=== PATIENT | female | born 2000 | race Two or more races ===

== ENCOUNTER 2022-03-24 06:30 | Emergency (ER) | payer OTHER ==
[~2022-03-24] VITALS: Ht 165.1 cm; Wt 53.6 kg
[2022-03-24] MEDS ORDERED: PRED-554 PO (07:12)
[2022-03-24] MEDS ORDERED: DiphenhydrAMINE HCL 50 MG/ML VIAL IM ONE (07:15)
[2022-03-24] MEDS ORDERED: PredniSONE 20 MG TABLET PO ONE (07:15)
[2022-03-24 08:07] VITALS: BP 110/80
== END 2022-03-24 08:21 | disposition home or self-care (01) ==
LOC: EMS 06:31
DX: L50.9 Urticaria, unspecified (principal)
CPT/HCPCS: 99283; 96372; J1200; J7512

== ENCOUNTER 2022-06-16 21:02 | Emergency (ER) | payer OTHER ==
[~2022-06-16] VITALS: Ht 157.5 cm; Wt 45.0 kg
[~2022-06-16 21:02] MED LIST: PRED-554 PO
[2022-06-16 21:26] LABS: COVID AG,FIA SOURCE NASAL SWAB
[2022-06-16] MEDS ORDERED: ACETAMINOPHEN 500 MG TABLET PO ONE (21:30)
[2022-06-16] MEDS ORDERED: ONDANSETRON HCL 4 MG TABLET PO ONE (21:30)
[2022-06-16] MEDS ORDERED: SODIUM CHLORIDE 0.9% 1,000 ML IV ONE (21:45)
[2022-06-16 21:48] LABS: INFLUENZA TYPE B NEGATIVE FOR TYPE B (NEGATIVE)
[2022-06-16 22:24] LABS: INFLUENZA TYPE A POSITIVE FOR TYPE A (NEGATIVE)
[2022-06-16] MEDS ORDERED: ONDA-104 PO (22:34)
[2022-06-16] MEDS ORDERED: OSEL75 PO (22:34)
[2022-06-16 22:58] VITALS: BP 112/54
== END 2022-06-16 23:34 | disposition home or self-care (01) ==
LOC: EMS 21:03
DX: J10.1 Influenza due to other identified influenza virus with other respiratory manifestations (principal); Z20.822 Contact with and (suspected) exposure to COVID-19
CPT/HCPCS: 99283; 96360; 87426; 87804; 81025; Q0162; J7030

== ENCOUNTER 2024-08-15 15:43 | Emergency (ER) | payer MEDICAID, OTHER ==
[~2024-08-15] VITALS: Ht 154.9 cm; Wt 43.2 kg
[~2024-08-15 15:43] MED LIST changes: +ONDA-104 PO; +OSEL75CA45 PO; -PRED-554 PO
[2024-08-15 15:45] VITALS: TEMP 98.5
[2024-08-15 16:30] LABS: APPEARANCE,URINE CLEAR (CLEAR); BILIRUBIN,URINE NEGATIVE (NEGATIVE); COLOR,URINE COLORLESS (YELLOW); GLUCOSE, URINE (UA) NEGATIVE (NEGATIVE); KETONES,URINE NEGATIVE (NEGATIVE); LEUKOCYTE ESTERASE ,URINE NEGATIVE (NEGATIVE); NITRATE,URINE NEGATIVE (NEGATIVE); OCCULT BLOOD,URINE NEGATIVE (NEGATIVE); PH,URINE 7.5 (5.0-8.0); PROTEIN,URINE NEGATIVE (NEGATIVE); SPECIFIC GRAVITIY, URINE 1.009 (1.003-1.030); UROBILINOGEN,URINE <=1.0 mg/dL (<=1.0)
[2024-08-15 16:32] LABS: BACTERIA,URINE Few /HPF (None Seen); RBC,URINE 0-2 /HPF (0-2); WBC,URINE 0-2 /HPF (0-5)
[2024-08-15 19:25] VITALS: BP 117/60; PULSE 83; RESP 18; O2SAT 99
== END 2024-08-15 19:45 | disposition home or self-care (01) ==
LOC: EMS 15:43
DX: R31.9 Hematuria, unspecified (principal); L30.9 Dermatitis, unspecified
CPT/HCPCS: 81001; 99283